=== PATIENT | male | born 1995 | race Caucasian/White ===

== ENCOUNTER 2016-08-14 23:57 | Emergency (ER) | payer SELFPAY ==
--- NOTE | ~2016-08-14 | CR142 ---
[facility]. [facility] A Service of [facility] & [facility] RADIOLOGY TEXT RESULTS PATIENT: BRENDON CARREON LOCATION: SED : [birth year] UNIT #: [id number] AGE: [address]: Brian Flores MD SEX: M ORDER DR: [id number] [place] [id number] E MR#: [id number] Acc #: [id number] NAME: BRENDON CARREON : 1995 SEX: M STUDY DATE/TIME: 08/14/2016 23:41 UNIT: SED ROOM: STUDY DESCRIPTION: CR Hand Min 3 Views Rt Attending Physician: Brian Flores M.D. Ordering Physician: Brian Flores M.D. Primary Care Physician: No Primary Care Physician MEDICAL IMAGING REPORT This report is preliminary unless electronic signature is present. EXAM Right hand 3 views HISTORY Posterior swelling and pain 1.5 months, punched a wall. FINDINGS Routine views of the right hand demonstrates a transverse fracture mid shaft of the fifth metacarpal. There is a prominent callus but the fracture remains clearly visible. This represent a developing delayed union. Joint spaces maintained. Mild soft tissue swelling. Dictated by... Shine Santizo M.D. THIS IS AN ELECTRONICALLY VERIFIED REPORT Shine Santizo M.D. at 08/16/2016 10:34 PM GUILLERMINA/connor TD: 08/15/2016 06:23 JOB #: [id number] MEDICAL IMAGING REPORT Page 1 of 1
[~2016-08-14 23:57] MED LIST: AMOXICILLIN875 MG PO; AUGMENTIN PO; BACTRIM DS TABL1 TA1 PO; BENZONATATE PO; CLARITIN10 M3 PO; FLECTOR1 EACH PO; IBUPROFEN800 MG PO; KEFLEX500 M1 PO; MOTRIN600 M2 PO; NAPROSYN500 MG PO; NO MEDICATIONS; ROBITUSSIN100 MG/52 PO
== END 2016-08-15 00:39 | disposition home or self-care (01) ==
LOC: SED 23:57
DX: S62.326A Displaced fracture of shaft of fifth metacarpal bone, right hand, initial encounter for closed fracture (principal); W22.01XA Walked into wall, initial encounter; Y92.9 Unspecified place or not applicable
CPT/HCPCS: 29125; 73130; 99283